=== PATIENT | female | born 2000 ===

== ENCOUNTER 2021-10-19 00:11 | Inpatient (IN) | payer OTHER ==
[2021-10-19] MEDS ORDERED: Ondansetron 4 MG/2 ML SDV IVPUSH PRN (00:13)
[2021-10-19] MEDS ORDERED: Tranexamic Acid 1,000 MG in Sodium Chloride 0.9% 100 ML IV PRN (00:13)
[2021-10-19] MEDS ORDERED: Methylergonovine 0.2 MG/1 ML Amp IM PRN (00:13)
[2021-10-19] MEDS ORDERED: Nalbuphine 10 MG/1 ML Vial IVPUSH PRN (00:13)
[2021-10-19] MEDS ORDERED: Butorphanol 1 MG/ML SDV IVPUSH PRN (00:13)
[2021-10-19] MEDS ORDERED: Carboprost Tromethamine 250 MCG/1 ML Amp IM PRN (00:13)
[2021-10-19] MEDS ORDERED: Water For Irrigation,Sterile 1,000 ML Container IRR PRN (00:13)
[2021-10-19] MEDS ORDERED: Sodium Chloride 0.9% 2.5 ML Syringe FLUSH PRN (00:13)
[2021-10-19] MEDS ORDERED: Sodium Chloride 0.9% 20 ML SDV IV PRN (00:13)
[2021-10-19] MEDS ORDERED: Misoprostol 200 MCG Tab PO PRN (00:13)
[2021-10-19] MEDS ORDERED: Lidocaine 1% 50 ML MDV INJECT PRN (00:13)
[2021-10-19] MEDS ORDERED: Sodium Chloride 0.9% 10 ML Syringe FLUSH PRN (00:13)
[2021-10-19] MEDS ORDERED: Oxytocin/0.9 % Sodium Chloride 30 UNIT/500 ML BAG IV SCH ×2 (00:15→00:30)
[2021-10-19] MEDS ORDERED: Misoprostol 25 MCG (1/4 of 100 MCG) Tab VAG PRN (00:16)
[2021-10-19] MEDS ORDERED: Terbutaline 1 MG/ML SDV SUBCUT PRN (00:16)
[2021-10-19] MEDS: Lactated Ringers 1,000 ML IV SCH ×3 (00:45→10:56)
[2021-10-19] MEDS: Misoprostol 25 MCG (1/4 of 100 MCG) Tab VAG PRN ×2 (00:58→05:09)
[2021-10-19] MEDS ORDERED: Ampicillin 2 GM in Sodium Chloride 0.9% 100 ML IV ONE (01:00)
[2021-10-19] MEDS: Ampicillin 1 GM in Sodium Chloride 0.9% 50 ML IV SCH ×3 (05:00→12:56)
[2021-10-19] MEDS ORDERED: ePHEDrine 50 MG/ML SDV IVPUSH PRN ×2 (07:50)
[2021-10-19] MEDS ORDERED: Ropivacaine HCl/PF 200 MG in Premix Bag 1 BAG EPIDUR SCH (08:00)
[2021-10-19] MEDS: Ondansetron 4 MG/2 ML SDV IVPUSH PRN ×2 (10:56→12:56)
[2021-10-19] MEDS ORDERED: Lanolin 100% Cream 7 GM Tube TOP PRN (15:53)
[2021-10-19] MEDS ORDERED: Acetaminophen 500 MG Tab PO PRN ×2 (15:53)
[2021-10-19] MEDS ORDERED: Benzocaine/Menthol 20%-0.5% Spray 78 GM Cannister TOP PRN (15:53)
[2021-10-19] MEDS ORDERED: Witch Hazel Medicated Pads 40/Jar TOP PRN (15:53)
[2021-10-19] MEDS ORDERED: oxyCODONE 5 MG Tab PO PRN (15:53)
[2021-10-19] MEDS ORDERED: Ibuprofen 400 MG Tab PO PRN (15:53)
[2021-10-19] MEDS ORDERED: Docusate Sodium 100 MG Cap PO PRN (15:53)
[2021-10-19] MEDS ORDERED: Bisacodyl 10 MG Supp RECTAL PRN (15:53)
[2021-10-19] MEDS ORDERED: diphenhydrAMINE 50 MG/ML SDV IVPUSH ONE (16:22)
[2021-10-19] MEDS: Ibuprofen 800 MG Tab PO PRN (16:31)
[2021-10-20] MEDS: Ibuprofen 800 MG Tab PO PRN ×2 (09:27→20:26)
[2021-10-21] MEDS: Ibuprofen 800 MG Tab PO PRN (07:49)
== END 2021-10-21 14:41 | disposition home or self-care (01) | DRG 807 ==
LOC: MW.OBCHECK 00:11 → MW.OB 00:11 → MW.OBCHECK 00:13 → OBSVTOIN 15:22 → MW.OB 17:59
PROVIDERS: ADMIT Obstetrics & Gynecology; ATTEND Obstetrics & Gynecology
PROC: 10E0XZZ Delivery of Products of Conception, External Approach (ICD-10-PCS; principal; 2021-10-19)
PROC: 10907ZC Drainage of Amniotic Fluid, Therapeutic from Products of Conception, Via Natural or Artificial Opening (ICD-10-PCS; 2021-10-19)
PROC: 3E0P7VZ Introduction of Hormone into Female Reproductive, Via Natural or Artificial Opening (ICD-10-PCS; 2021-10-19)
PROC: 3E0R3BZ Introduction of Anesthetic Agent into Spinal Canal, Percutaneous Approach (ICD-10-PCS; 2021-10-19)
DX: O99.824 Streptococcus B carrier state complicating childbirth (principal); Z37.0 Single live birth; Z3A.37 37 weeks gestation of pregnancy; O26.893 Other specified pregnancy related conditions, third trimester; Z67.11 Type A blood, Rh negative; Z20.822 Contact with and (suspected) exposure to COVID-19
CPT/HCPCS: 01967; 36415; 51702; 59025; 59409; 82803; 85014; 85018; 85027; 86592; 86850; 86900; 86901; A9270-GY; J0290; J0595; J1200; J2405; J2590; J7120; U0002